=== PATIENT | female | born 1990 | race Caucasian/White ===

== ENCOUNTER → 2018-08-15 | Outpatient (REF) ==
[~2018-08-15] MED LIST: IBUP-1114 PO; MAPA500T2 PO; MOTR200T44 PO; PRENTAB7 PO; PRENTAB9 PO; TYLE325T5 PO; ZANT150T15 PO
--- NOTE | 2018-08-15 14:14 | REP ---
LUMBAR SPINE, THREE VIEWS: HISTORY: Degenerative disc disease. There is no acute fracture. The L3-4 and L4-5 intervertebral discs are decreased in height consistent with disc degeneration. There are 3 mm of retrolisthesis of L5 on S1. An IUD is present in the pelvis. IMPRESSION: Degenerative change as described above. Electronically Signed by Fortino Blackwood MD 08/15/2018 02:17 P
--- NOTE | 2018-08-15 14:28 | REP ---
Clinical: Right knee pain Technique: AP, lateral, bilateral oblique and sunrise views. Findings: The osseous structures and joint spaces are intact and normal. There is no evidence for acute fracture or dislocation. No joint effusion is appreciated. Surrounding soft tissues are unremarkable. No subcutaneous emphysema or radiodense foreign body. Impression: Age-appropriate right knee examination. No acute fracture or dislocation. No overt arthritic changes are identified. Electronically Signed by Jeb Fontenot MD 08/15/2018 02:19 P
== END ==
LOC: M SMT 13:25
PROVIDERS: ATTEND Internal Medicine
DX: M51.36 Other intervertebral disc degeneration, lumbar region (principal)